=== PATIENT | female | born 1940 | race Caucasian/White ===

== ENCOUNTER → 2018-11-08 | Outpatient (CLI) | payer OTHER ==
[~2018-11-08] MED LIST: ALLERCLEAR10 MG PO; ASCO500 PO; CALCAVITDA PO; ERGO400 PO; LEVSOD50 PO; OMEP20ER PO; OXYC5 PO; PRIM50 PO; PROP10 PO; Prilosec Otc20 MG; [UNRECOGNIZED DRUG - REMARK] PO
[2018-11-08 16:13] LABS: BASOPHILS ABSOLUTE AUTO 0.06 K/mm3 (0.00-0.23); BASOPHILS PERCENT AUTO 1 % (0-2); EOSINOPHILS ABSOLUTE AUTO 0.48 K/mm3 (0.00-0.68); EOSINOPHILS PERCENT AUTO 6 % (0-6); Hematocrit 43.1 % (33.0-51.0); Hemoglobin 13.9 g/dL (11.5-16.0); IMMATURE GRAN ABSOLUTE AUTO 0.02 K/mm3 (0.00-0.10); IMMATURE GRAN PERCENT AUTO 0 % (0-1); LYMPHOCYTES ABSOLUTE AUTO 2.66 K/mm3 (0.84-5.20); LYMPHOCYTES PERCENT AUTO 33 % (21-46); MONOCYTES ABSOLUTE AUTO 0.58 K/mm3 (0.16-1.47); MONOCYTES PERCENT AUTO 7 % (4-13); Mean Corpuscular HGB 29.5 pg (26.0-34.0); Mean Corpuscular HGB Conc 32.3 g/dL (31.5-36.5); Mean Corpuscular Volume 92 fL (80-100); NEUTROPHILS PERCENT AUTO 53 % (41-73); Platelet Count 287 K/mm3 (150-400); RDW Coefficient Variation 12.6 % (11.7-14.2); RDW Standard Deviation 42.5 fL (35.1-46.3); Red Blood Cell Count 4.71 M/mm3 (3.80-5.20)
[2018-11-08 16:23] LABS: Albumin, Blood 3.6 g/dL (3.4-5.0); Albumin/Globulin Ratio 0.9 (0.8-1.8); Bilirubin, Total 0.4 mg/dL (0.1-1.0); Bun/Creatinine Ratio 13.2 (12.0-20.0); Calcium, Blood 9.3 mg/dL (8.5-10.1); Creatinine, Blood 0.91 mg/dL (0.40-1.00); Globulin, Blood 4.2 g/dL (2.2-4.0); Potassium, Blood 4.1 mmol/L (3.5-5.5); Total Protein, Blood 7.8 g/dL (6.4-8.2)
== END | disposition home or self-care (01) ==
LOC: LAB SHORT 16:08 → LAB EV 16:08
PROVIDERS: Internal Medicine
DX: R10.30 Lower abdominal pain, unspecified (principal)
CPT/HCPCS: 80053; 85025

== ENCOUNTER 2019-03-10 05:47 | Day surgery (SDC) | payer OTHER ==
[~2019-03-10] VITALS: Ht 157.5 cm; Wt 76.5 kg
[~2019-03-10 05:47] MED LIST changes: +CALCIUM PO; +Colace100 MG PO; -ERGO400 PO; +FAMO40 PO; +Gaviscon Extra355 ML PO; +MIRALAX17 G1 PO; +PRAHYD1AE TOP; +RHINOCORT ALL8.43 ML; +THERA1 EACH PO; +Vitamin D2000 UNIT PO
--- NOTE | 2019-03-10 07:12 | NUR ---
History, Chart, Medications and Allergies reviewed before start of procedure. Pre-Op teaching done. Pt verbalizes understanding. Patient States Post-Procedure ride home has been arranged with Femi. Lungs clear T/O to Auscultation. Patient states colon prep results clear. All of patient belonging in bag under bed, no jewerly dentures or glasses were worn to procedure.
--- NOTE | 2019-03-10 07:40 | NUR ---
03/10/19 0740 Belia Degroot History, Chart, Medications and Allergies reviewed before start of procedure. MONITOR INTACT WITH CONTINUOUS PULSE OXIMETRY AND INTERMITTENT BP. DR. PICHARDO PROVING MAC. PROCEDURE DONE ON OR 2.
--- NOTE | 2019-03-10 10:40 | NUR ---
Patient up to Ambulate independently. Gait steady. Discharge instructions reviewed with patient. Patient verbalizes understanding. Copy given to patient to take home. Patient States Post-Procedure ride home has been arranged. Discharged via wheelchair to private car for ride home. ALL BELONINGS RETURNED TO PATIENT.
== END 2019-03-10 22:40 | disposition home or self-care (01) ==
LOC: ORSCMMR 05:47 → ORD 07:30 → ORSCMMR 22:40
PROVIDERS: Surgery
PROC: 0DBK8ZX Excision of Ascending Colon, Via Natural or Artificial Opening Endoscopic, Diagnostic (ICD-10-PCS; principal; 2019-03-10 07:30)
PROC: 06BY0ZC Excision of Hemorrhoidal Plexus, Open Approach (ICD-10-PCS; principal; 2019-03-10 07:30)
PROC: 0DBM8ZX Excision of Descending Colon, Via Natural or Artificial Opening Endoscopic, Diagnostic (ICD-10-PCS; principal; 2019-03-10 07:30)
DX: K64.2 Third degree hemorrhoids (principal); K62.5 Hemorrhage of anus and rectum; K57.30 Diverticulosis of large intestine without perforation or abscess without bleeding; D12.2 Benign neoplasm of ascending colon; D12.4 Benign neoplasm of descending colon; K21.9 Gastro-esophageal reflux disease without esophagitis; E03.9 Hypothyroidism, unspecified; Z79.899 Other long term (current) drug therapy
CPT/HCPCS: 88304; 88305; J1100; J1885; J2250; J2405; J2704; J3010; J7120

== ENCOUNTER 2020-04-04 16:12 | Emergency (ER) | payer OTHER ==
[~2020-04-04] VITALS: Ht 162.6 cm; Wt 63.5 kg
[2020-04-04 17:52] LABS: Alanine Aminotransfer (ALT/SGP 32 U/L (12-78); Albumin, Blood 3.5 g/dL (3.4-5.0); Albumin/Globulin Ratio 1.2 (0.8-1.8); Alk Phos 78 U/L (50-136); Anion Gap 5 mmol/L (6-16); Aspartate Aminotrans (AST/SGOT 30 U/L (12-37); Bilirubin, Total 0.4 mg/dL (0.1-1.0); Blood Urea Nitrogen 11 mg/dL (8-24); Bun/Creatinine Ratio 16.9 (12.0-20.0); CO2, Blood 27 mmol/L (21-32); Chloride, Blood 108 mmol/L (98-108); Creatinine, Blood 0.65 mg/dL (0.40-1.00); Glomerular Filtration Rate >60 (60-); Glucose, Blood 98 mg/dL (70-99); Potassium, Blood 4.1 mmol/L (3.5-5.5); Sodium, Blood 140 mmol/L (136-145); Total Protein, Blood 6.5 g/dL (6.4-8.2); Troponin I <0.015 ng/mL (0.000-0.040)
[2020-04-04 18:24] LABS: BASOPHILS ABSOLUTE AUTO 0.04 K/mm3 (0.00-0.23); BASOPHILS PERCENT AUTO 1 % (0-2); EOSINOPHILS ABSOLUTE AUTO 0.26 K/mm3 (0.00-0.68); EOSINOPHILS PERCENT AUTO 4 % (0-6); Hematocrit 43.2 % (33.0-51.0); Hemoglobin 13.7 g/dL (11.5-16.0); IMMATURE GRAN ABSOLUTE AUTO 0.02 K/mm3 (0.00-0.10); IMMATURE GRAN PERCENT AUTO 0 % (0-1); LYMPHOCYTES ABSOLUTE AUTO 2.09 K/mm3 (0.84-5.20); LYMPHOCYTES PERCENT AUTO 32 % (21-46); MONOCYTES ABSOLUTE AUTO 0.51 K/mm3 (0.16-1.47); MONOCYTES PERCENT AUTO 8 % (4-13); Mean Corpuscular HGB Conc 31.7 g/dL (31.5-36.5); Mean Corpuscular Volume 91 fL (80-100); Mean Platelet Volume 10.5 fL (9.1-12.4); NEUTROPHILS ABSOLUTE AUTO 3.59 K/mm3 (1.96-9.15); NEUTROPHILS PERCENT AUTO 55 % (41-73); Platelet Count 221 K/mm3 (150-400); RDW Coefficient Variation 12.4 % (11.7-14.2); RDW Standard Deviation 41.9 fL (35.1-46.3); Red Blood Cell Count 4.73 M/mm3 (3.80-5.20); White Blood Cell Count 6.51 K/mm3 (4.00-11.30)
== END 2020-04-04 18:45 | disposition home or self-care (01) ==
LOC: ER 16:12
PROVIDERS: Emergency Medicine; Physician Assistant
DX: R07.9 Chest pain, unspecified (principal); Z79.899 Other long term (current) drug therapy; Z88.0 Allergy status to penicillin; Z88.5 Allergy status to narcotic agent; Z88.2 Allergy status to sulfonamides; Z79.52 Long term (current) use of systemic steroids; Z91.012 Allergy to eggs; Z91.018 Allergy to other foods; Z88.1 Allergy status to other antibiotic agents
CPT/HCPCS: 71046; 80053; 82550; 83690; 83880; 84484; 85025; 85379; 93005; 93010; 96374; 99285-25; J2060

== ENCOUNTER → 2020-08-05 | Outpatient (CLI) | payer OTHER | END | disposition home or self-care (01) | LOC: LAB 15:33 → LAB SHORT 15:33 | DX: R30.9 Painful micturition, unspecified (principal) | CPT/HCPCS: 87077; 87086; 87186 ==

== ENCOUNTER → 2020-11-12 | Outpatient (CLI) | payer OTHER | END | disposition home or self-care (01) | LOC: LAB SHORT 12:00 → LAB 12:00 | DX: R30.0 Dysuria (principal) | CPT/HCPCS: 87086 ==

== ENCOUNTER → 2021-11-15 | Outpatient (CLI) | payer OTHER ==
[2021-11-15 14:44] LABS: BASOPHILS ABSOLUTE AUTO 0.05 K/mm3 (0.00-0.23); BASOPHILS PERCENT AUTO 1 % (0-2); EOSINOPHILS ABSOLUTE AUTO 0.41 K/mm3 (0.00-0.68); EOSINOPHILS PERCENT AUTO 6 % (0-6); Hematocrit 43.5 % (33.0-51.0); Hemoglobin 14.2 g/dL (11.5-16.0); IMMATURE GRAN ABSOLUTE AUTO 0.02 K/mm3 (0.00-0.10); IMMATURE GRAN PERCENT AUTO 0 % (0-1); LYMPHOCYTES ABSOLUTE AUTO 1.97 K/mm3 (0.84-5.20); LYMPHOCYTES PERCENT AUTO 28 % (21-46); MONOCYTES PERCENT AUTO 8 % (4-13); Mean Corpuscular HGB 30.1 pg (26.0-34.0); Mean Corpuscular HGB Conc 32.6 g/dL (31.5-36.5); Mean Corpuscular Volume 92 fL (80-100); NEUTROPHILS ABSOLUTE AUTO 4.09 K/mm3 (1.96-9.15); NEUTROPHILS PERCENT AUTO 57 % (41-73); Platelet Count 303 K/mm3 (150-400); RDW Coefficient Variation 12.1 % (11.7-14.2); RDW Standard Deviation 41.7 fL (35.1-46.3); Red Blood Cell Count 4.72 M/mm3 (3.80-5.20); White Blood Cell Count 7.14 K/mm3 (4.00-11.30)
[2021-11-15 15:01] LABS: Albumin, Blood 3.6 g/dL (3.4-5.0); Bilirubin, Total 0.5 mg/dL (0.1-1.0); Bun/Creatinine Ratio 16.4 (12.0-20.0); Creatinine, Blood 0.73 mg/dL (0.40-1.00); Globulin, Blood 3.7 g/dL (2.2-4.0); Magnesium, Blood 2.2 mg/dL (1.6-2.4); Potassium, Blood 3.9 mmol/L (3.5-5.5); Total Protein, Blood 7.3 g/dL (6.4-8.2)
== END | disposition home or self-care (01) ==
LOC: LAB SHORT 14:05
PROVIDERS: Nurse Practitioner Family
DX: R53.83 Other fatigue (principal)
CPT/HCPCS: 80053; 83735; 85025

== ENCOUNTER → 2022-01-02 | Outpatient (CLI) | payer MEDICARE | LOC: LAB 13:08 → LAB SHORT 13:08 | DX: N39.0 Urinary tract infection, site not specified (principal) | CPT/HCPCS: 87077; 87086; 87186 ==

== ENCOUNTER 2022-02-12 17:46 | Emergency (ER) | payer MEDICARE ==
[~2022-02-12] VITALS: Ht 162.6 cm; Wt 72.6 kg
[2022-02-12 18:41] LABS: BASOPHILS ABSOLUTE AUTO 0.04 K/mm3 (0.00-0.23); BASOPHILS PERCENT AUTO 1 % (0-2); EOSINOPHILS ABSOLUTE AUTO 0.16 K/mm3 (0.00-0.68); EOSINOPHILS PERCENT AUTO 2 % (0-6); Hematocrit 43.8 % (33.0-51.0); Hemoglobin 14.2 g/dL (11.5-16.0); IMMATURE GRAN ABSOLUTE AUTO 0.01 K/mm3 (0.00-0.10); IMMATURE GRAN PERCENT AUTO 0 % (0-1); LYMPHOCYTES ABSOLUTE AUTO 1.84 K/mm3 (0.84-5.20); LYMPHOCYTES PERCENT AUTO 26 % (21-46); MONOCYTES ABSOLUTE AUTO 0.64 K/mm3 (0.16-1.47); MONOCYTES PERCENT AUTO 9 % (4-13); Mean Corpuscular HGB 29.6 pg (26.0-34.0); Mean Corpuscular HGB Conc 32.4 g/dL (31.5-36.5); Mean Corpuscular Volume 91 fL (80-100); Mean Platelet Volume 9.9 fL (9.1-12.4); NEUTROPHILS ABSOLUTE AUTO 4.52 K/mm3 (1.96-9.15); NEUTROPHILS PERCENT AUTO 63 % (41-73); Platelet Count 263 K/mm3 (150-400); RDW Coefficient Variation 12.2 % (11.7-14.2); RDW Standard Deviation 40.4 fL (35.1-46.3); Red Blood Cell Count 4.79 M/mm3 (3.80-5.20); White Blood Cell Count 7.21 K/mm3 (4.00-11.30)
[2022-02-12 19:25] LABS: Albumin, Blood 3.3 g/dL (3.4-5.0); Albumin/Globulin Ratio 0.8 (0.8-1.8); Bilirubin, Total 0.4 mg/dL (0.1-1.0); Bun/Creatinine Ratio 12.7 (12.0-20.0); Calcium, Blood 9.4 mg/dL (8.5-10.1); Creatinine, Blood 0.71 mg/dL (0.40-1.00); Potassium, Blood 3.6 mmol/L (3.5-5.5); Total Protein, Blood 7.3 g/dL (6.4-8.2)
== END 2022-02-12 19:42 | disposition left against medical advice (07) ==
LOC: ER 17:46
PROVIDERS: Student in an Organized Health Care Education/Training Program
DX: R07.9 Chest pain, unspecified (principal); M54.9 Dorsalgia, unspecified; Z53.21 Procedure and treatment not carried out due to patient leaving prior to being seen by health care provider
CPT/HCPCS: 36415; 71046; 80053; 83880; 84484; 85025

== ENCOUNTER 2022-02-22 20:47 | Inpatient (IN) | payer MEDICARE ==
[~2022-02-22] VITALS: Ht 162.6 cm; Wt 66.7 kg
[2022-02-22 21:11] LABS: BASOPHILS ABSOLUTE AUTO 0.06 K/mm3 (0.00-0.23); BASOPHILS PERCENT AUTO 1 % (0-2); EOSINOPHILS ABSOLUTE AUTO 0.12 K/mm3 (0.00-0.68); EOSINOPHILS PERCENT AUTO 1 % (0-6); Hematocrit 46.5 % (33.0-51.0); Hemoglobin 15.2 g/dL (11.5-16.0); IMMATURE GRAN ABSOLUTE AUTO 0.03 K/mm3 (0.00-0.10); IMMATURE GRAN PERCENT AUTO 0 % (0-1); LYMPHOCYTES ABSOLUTE AUTO 2.65 K/mm3 (0.84-5.20); LYMPHOCYTES PERCENT AUTO 23 % (21-46); MONOCYTES ABSOLUTE AUTO 1.09 K/mm3 (0.16-1.47); MONOCYTES PERCENT AUTO 10 % (4-13); Mean Corpuscular HGB 29.9 pg (26.0-34.0); Mean Corpuscular HGB Conc 32.7 g/dL (31.5-36.5); Mean Corpuscular Volume 91 fL (80-100); Mean Platelet Volume 10.5 fL (9.1-12.4); NEUTROPHILS ABSOLUTE AUTO 7.39 K/mm3 (1.96-9.15); NEUTROPHILS PERCENT AUTO 65 % (41-73); Platelet Count 277 K/mm3 (150-400); RDW Coefficient Variation 12.4 % (11.7-14.2); RDW Standard Deviation 41.7 fL (35.1-46.3); Red Blood Cell Count 5.09 M/mm3 (3.80-5.20); White Blood Cell Count 11.34 K/mm3 (4.00-11.30)
[2022-02-22 21:26] LABS: International Normalized Ratio 1.09; Prothrombin Time Results 11.4 Sec (9.7-11.5)
[2022-02-22 21:32] LABS: Alanine Aminotransfer (ALT/SGP 28 U/L (12-78); Albumin, Blood 3.4 g/dL (3.4-5.0); Albumin/Globulin Ratio 0.8 (0.8-1.8); Alk Phos 99 U/L (50-136); Anion Gap 7 mmol/L (6-16); Aspartate Aminotrans (AST/SGOT 20 U/L (12-37); Bilirubin, Total 0.7 mg/dL (0.1-1.0); Blood Urea Nitrogen 14 mg/dL (8-24); Bun/Creatinine Ratio 16.6 (12.0-20.0); CHOL/HDL RATIO 4.8; CO2, Blood 27 mmol/L (21-32); Calcium, Blood 8.8 mg/dL (8.5-10.1); Chloride, Blood 105 mmol/L (98-108); Cholesterol 194 mg/dL (50-200); Creatinine, Blood 0.84 mg/dL (0.40-1.00); Globulin, Blood 4.1 g/dL (2.2-4.0); Glomerular Filtration Rate 69 (60-); Glucose, Blood 137 mg/dL (70-99); HDL Cholesterol 40 mg/dL (>39); Low Density Lipoprotein Chol 122 mg/dL (0-110); Magnesium, Blood 2.3 mg/dL (1.6-2.4); Potassium, Blood 3.7 mmol/L (3.5-5.5); Sodium, Blood 139 mmol/L (136-145); Total Protein, Blood 7.5 g/dL (6.4-8.2); Triglycerides 162 mg/dL (30-160); Very Low Density Lipoprot Chol 32 mg/dL (6-32)
[2022-02-22 22:00] LABS: Calcium, Ionized (POC) 1.09 mmol/L (1.10-1.46); Chloride (POC) 102 mmol/L (98-108); Creatinine (POC) 0.8 mg/dL (0.6-1.0); Glucose (ISTAT POC) 119 mg/dL (70-99); Hemoglobin (POC) 15.6 g/dL (12.0-16.0); Potassium (POC) 3.8 mmol/L (3.5-5.5); Sodium (POC) 139 mmol/L (135-148); Total CO2 (POC) 27 mmol/L (21-32)
--- NOTE | 2022-02-22 22:47 | NUR ---
Pt arrived to ICU-13 from collaborative physician. Per ED report, pt was c/o chest pain and taken to the collaborative physician within an hour. Per laboratory inspector RN pt has a TR band to right radial site and no interventions were done. Pt is A&Ox4, DOS SANTOS, no c/o numbness or tingling. Sinus tach with HR in 110-120s. Pt denies any chest pain currently. States that she has some SOB - O2 sat 88-90%, pt placed on 3L NC.
--- NOTE | 2022-02-22 23:20 | NUR ---
Pt taken to CT for a stat chest CT to R/O PE. Arrived back to ICU-13. Assisted pt to bathroom and pt became extremely short of breath and tachycardic. Dr. Araiza came to bedside to assess patient. DNR order placed and band on left wrist. Heparin drip started.
[2022-02-22 23:23] LABS: Anti-Xa UFH, PHA Monitoring <0.10 IU/mL
--- NOTE | 2022-02-23 00:45 | NUR ---
Per report from laboratory veterinarian, TR band to right radial was inflated with 10ml. Dr. Barber informed chargemaster analyst that the pt was a high risk for bleed and to monitor closely. 2ml from TR band removed at this time. 8ml remaining.
--- NOTE | 2022-02-23 01:19 | NUR ---
2ml from TR band removed at this time. 6ml remaining. No bleeding noted.
--- NOTE | 2022-02-23 02:02 | NUR ---
2ml from TR band removed at this time. 4ml remaining. No bleeding noted.
--- NOTE | 2022-02-23 02:20 | NUR ---
2ml from TR band removed at this time. 2ml remaining. No bleeding noted.
--- NOTE | 2022-02-23 02:53 | NUR ---
Remainder of air removed from TR band. No bleeding noted. Pulses palpable. No c/o numbness/tingling.
--- NOTE | 2022-02-23 04:11 | NUR ---
TR band removed from right radial site. Tegaderm dressing placed and armboard intact. No bleeding or hematoma noted. Site is soft and no C/O numbness or tingling.
[2022-02-23 06:24] LABS: BASOPHILS ABSOLUTE AUTO 0.07 K/mm3 (0.00-0.23); BASOPHILS PERCENT AUTO 1 % (0-2); EOSINOPHILS PERCENT AUTO 1 % (0-6); Hematocrit 43.7 % (33.0-51.0); Hemoglobin 14.3 g/dL (11.5-16.0); IMMATURE GRAN ABSOLUTE AUTO 0.02 K/mm3 (0.00-0.10); IMMATURE GRAN PERCENT AUTO 0 % (0-1); LYMPHOCYTES ABSOLUTE AUTO 2.68 K/mm3 (0.84-5.20); LYMPHOCYTES PERCENT AUTO 27 % (21-46); MONOCYTES ABSOLUTE AUTO 0.85 K/mm3 (0.16-1.47); MONOCYTES PERCENT AUTO 9 % (4-13); Mean Corpuscular HGB Conc 32.7 g/dL (31.5-36.5); Mean Corpuscular Volume 92 fL (80-100); Mean Platelet Volume 10.6 fL (9.1-12.4); NEUTROPHILS ABSOLUTE AUTO 6.07 K/mm3 (1.96-9.15); NEUTROPHILS PERCENT AUTO 62 % (41-73); Platelet Count 235 K/mm3 (150-400); RDW Coefficient Variation 12.7 % (11.7-14.2); RDW Standard Deviation 42.4 fL (35.1-46.3); Red Blood Cell Count 4.76 M/mm3 (3.80-5.20); White Blood Cell Count 9.79 K/mm3 (4.00-11.30)
--- NOTE | 2022-02-23 06:26 | NUR ---
Shift summary: Neuro: A&OX4, calls out appropriately, follows commands. Cardiac: ST, BP WNL. TR band to right radial site removed around 4am, tegaderm dressing in place. No bleeding or hematoma noted. Pulses are palpable, no c/o numbness or tingling. Denies any chest pain or pressure. Resp: AMBRIZ. Pt currently on 2L NC with O2 sats 96%. Clear/diminished breath sounds throughout. CT chest shows severe PE's. GI/: Cardiac diet, No BM overnight. Voided in the toilet the first time but became severely SOB. Pt tolerated voiding in bedpan much better. Other: Heparin drip infusing at 12units/kg/hr and pharmacy to adjust dosage. Pending study to asses BLE for DVT's and an ECHO.
[2022-02-23 06:46] LABS: Bun/Creatinine Ratio 16.8 (12.0-20.0); Calcium, Blood 8.8 mg/dL (8.5-10.1); Creatinine, Blood 0.83 mg/dL (0.40-1.00); Potassium, Blood 3.5 mmol/L (3.5-5.5)
--- NOTE | 2022-02-23 07:39 | NUR ---
CARE OF PT ASSUMED AT 0700. HEPARIN TURNED OFF AT 0700, TO BE HELD X 1HR PER PHARMACY THEN TO RESUME AT 10UNITS/KG/HR. DR CONRAD CALLED FOR AN UPDATE, PT TO REMAIN NPO FOR NOW. BP STABLE, HR 100-110. PT DENIES C/O CHEST PAIN. PT CONF[place]ER[place]. PT HAD A DIFFICULT TIME USING BED ARMSTRONG, ONLY SMALL AMT OF URINE, WILL ASK TO CHECK W BLADER SCAN. PT DID NOT TOLERATE GETTING UP TO COMMODE PER NIGHT RN; SOB, LABORED BREATHING W TACHYCADIA.
--- NOTE | 2022-02-23 10:42 | NUR ---
UNABLE TO PASS CATHETER D/T POSSIBLE SPASM. PUREWICK PLACED FOR NOW.
--- NOTE | 2022-02-23 13:02 | NUR ---
DR CONRAD IN TO SPEAK W PT ABOUT POSSIBLY STARTING TPA. PT WILL THINK ABOUT IT AND WANTS TO CONSULT DAUGHTER. DR GUZMAN CONSULTED BY DR CONRAD; DR GUZMAN NOTIFIED. PT RESTING W/O COMPLAINTS AT THIS TIME
--- NOTE | 2022-02-23 17:11 | NUR ---
DR CONRAD IN AROUND 1600 TO SPEAK WITH PT AND PT'S DAUGHTER ABOUT TREATMENT OPTIONS. WILL CONT WITH JUST MEDICAL MANAGEMENT FOR NOW BUT THEY ARE CONSIDERING OTHER OPTIONS. OKAY FOR PT TO HAVE FOOD/FLUIDS. DIET ORDERED. HEPARIN GTT WAS INCREASED TO 11UNITS AT 1517 PER PHARMACY. BP REMAINS STABLE, NO OTHER CHANGES.
--- NOTE | 2022-02-23 18:17 | NUR ---
AFTER TURNING PT TO PLACE NEW DRUMMOND PAD, PT BECAME NAUSEATED. HEART RATE INCREASED TO 130. BP REMAINS STABLE DO O2 SATS. DR CONRAD CALLED, METOPROLOL 25MG AND ZOFRFRANCISCO JAVIER ORDERED.
[2022-02-24 07:39] LABS: BASOPHILS ABSOLUTE AUTO 0.06 K/mm3 (0.00-0.23); BASOPHILS PERCENT AUTO 1 % (0-2); EOSINOPHILS ABSOLUTE AUTO 0.12 K/mm3 (0.00-0.68); EOSINOPHILS PERCENT AUTO 1 % (0-6); Hematocrit 41.6 % (33.0-51.0); Hemoglobin 13.5 g/dL (11.5-16.0); IMMATURE GRAN ABSOLUTE AUTO 0.03 K/mm3 (0.00-0.10); IMMATURE GRAN PERCENT AUTO 0 % (0-1); LYMPHOCYTES ABSOLUTE AUTO 1.82 K/mm3 (0.84-5.20); LYMPHOCYTES PERCENT AUTO 17 % (21-46); MONOCYTES ABSOLUTE AUTO 0.93 K/mm3 (0.16-1.47); MONOCYTES PERCENT AUTO 9 % (4-13); Mean Corpuscular HGB 30.2 pg (26.0-34.0); Mean Corpuscular HGB Conc 32.5 g/dL (31.5-36.5); Mean Corpuscular Volume 93 fL (80-100); Mean Platelet Volume 11.7 fL (9.1-12.4); NEUTROPHILS ABSOLUTE AUTO 7.73 K/mm3 (1.96-9.15); NEUTROPHILS PERCENT AUTO 72 % (41-73); Platelet Count 213 K/mm3 (150-400); RDW Coefficient Variation 12.6 % (11.7-14.2); RDW Standard Deviation 43.2 fL (35.1-46.3); Red Blood Cell Count 4.47 M/mm3 (3.80-5.20); White Blood Cell Count 10.69 K/mm3 (4.00-11.30)
[2022-02-24 07:45] LABS: Bun/Creatinine Ratio 18.6 (12.0-20.0); Calcium, Blood 8.4 mg/dL (8.5-10.1); Creatinine, Blood 0.7 mg/dL (0.40-1.00)
--- NOTE | 2022-02-24 10:05 | NUR ---
ASSUMED CARE OF PT AT 0800 PT TRANSFERRED TO ICU 8 FROM ICU 13, BEDSIDE REPORT RECIEVED FROM EVON GUAMAN. PT A/OX4, PER REPORT CAN BE FORGETFUL AT TIMES. ST, BP WNL. 2 SAT 93% ON 2L NC, LUNGS CLEAR, DIMINISHED IN BILAT BASES. DENIES SOB AND CHEST PAIN. CARDIAC DIET, DECLINES BREAKFAST AT THIS TIME, WOULD LIKE TO SLEEP FOR A BIT. DENIES NAUSEA, NO VOMITING. PUREWICK IN PLACE, PT TOLERATING WELL. ASSESSED FOR CORRECT POSITION, NO SKIN ISSUES OBSERVED. PIV X2, RIGHT AC INFUSING HEPARIN AT 13UNITS, LEFT FOREARM SL. NO FAMILY CURRENTLY AT BEDSIDE. RN TO CONTINUE TO MONITOR.
--- NOTE | 2022-02-24 11:02 | NUR ---
Pt. is resting but responds when I enter the room and welcomes my visit. After cordial introductions the Pt. and this surveillance analyst realize that we know one another. Pt. is pleasant but unsettled by the physical limitations of her condition. Listen with empathy, and connect with the Pt. in a supportive understanding way. Pt. displayed evidence of being encouraged and supported. Pt. requested I let her methodist know that she was in the hospital. Prayed with Pt. Pt. verbalized gratitude for the spiritual care visit.
--- NOTE | 2022-02-24 14:07 | NUR ---
CARDIOLOGY TO BEDSIDE DISCUSSED POC WITH OPTICAL COATING TECHNICIAN DR. CONRAD, PA TO START PO ELOQUIS 5MG BID AND STOP HEPARIN DRIP 2 HOURS AFTER 1ST DOSE IF OK WITH CHUCKER. CONSULTED DR. GUZMAN AND ORDERS RECIEVED FOR ABOVE. UPON D/C, PT WILL NEED TO F/U WITH CARDIOLOGY IN 4 WEEKS AND PRIMARY CARE IN [address] CONRAD. RN TO CONTINUE TO MONITOR.
--- NOTE | 2022-02-24 15:24 | NUR ---
DR. ARRIOLA TO BEDSIDE OK TO STATUS CHANGE TO MEDICAL WITH TELE. UPDATED DR. ARRIOLA ON PLAN TO D/C HEPARIN DRIP AFTER ELIQUIS STARTED, HE IS AGREEABLE TO THE PLAN. POSSIBLE D/C HOME TOMORROW AFTER PT/OT EVAL IF APPROPRIATE. RN TO CONTINUE TO MONITOR.
--- NOTE | 2022-02-24 16:00 | NUR ---
DAUGHTER TO BEDSIDE UPDATED ON POC AND POTENTIAL D/C HOME TOMORROW IF DEEMED APPROPRIATE AFTER PT/OT EVAL. DAUGHTER CONCERNED ABOUT NO BM X7-8 DAYS. PT HAS ATTEMPTED TO HAVE BM TODAY WITH NO SUCCESS. CONTACTED DR. ARRIOLA FOR ORDERS, DULCOLAX SUPPOSITORY ORDERED AND GIVEN. HEPARIN DRIP D/C'D 2 HOURS POST ADMINISTRATION OF ELIQUIS ORDERED. RN TO CONTINUE TO MONITOR.
--- NOTE | 2022-02-24 18:28 | NUR ---
END OF SHIFT SUMMARY PT IS A/O X4. ST 100-115, SBP 110-120. ON RA FOR APPROX 1 HOUR AND DESATURATED TO 83% WITH ACTIVITY SO PLACED BACK ON 2L NC TO AMINTAIN O2 SAT > 96%. LUNGS CLEAR, DIMINSHED AT BASES. TOLERATED BREAKFAST AND LUNCH, NAUSEATED AT DINNER TIME, MEDICATED WITH ZOFRAN WITH GOOD EFFECT. DID NOT EAT DINNER. PUREWICK IN PLACE, CHANGED X2, ALSO HAD INCONTINENCE X2. ATTEMTPED BM SEVERAL TIMES ON THE BEDPAN WITH NO SUCCESS, DULCOLAX GIVEN OH. IV TO RIGHT AC, DRESSING CHANGED, FLUSHES AND WITHDRAWS BLOOD. IV TO LEFT WRIST, DRESSING C/D/I, FLUSHES AND WITHDRAWS BLOOD. HEPARIN DRIP D/C'D 2 HOURS AFTER 1ST DOSE OF ELIQUIS PER MD ORDER. DAUGHTER TO BEDSIDE, UPDATED ON POC. PLAN IS D/C HOME TOMORROW IF APPROPRIATE AFTER PT/OT. PT MAY NEED EVAL FOR HOME O2. RN TO CONTINUE TO MONITOR.
[2022-02-25 05:48] LABS: BASOPHILS ABSOLUTE AUTO 0.04 K/mm3 (0.00-0.23); BASOPHILS PERCENT AUTO 0 % (0-2); EOSINOPHILS ABSOLUTE AUTO 0.06 K/mm3 (0.00-0.68); EOSINOPHILS PERCENT AUTO 1 % (0-6); Hematocrit 39.6 % (33.0-51.0); Hemoglobin 13.1 g/dL (11.5-16.0); IMMATURE GRAN ABSOLUTE AUTO 0.03 K/mm3 (0.00-0.10); IMMATURE GRAN PERCENT AUTO 0 % (0-1); LYMPHOCYTES ABSOLUTE AUTO 1.19 K/mm3 (0.84-5.20); LYMPHOCYTES PERCENT AUTO 12 % (21-46); MONOCYTES ABSOLUTE AUTO 0.76 K/mm3 (0.16-1.47); MONOCYTES PERCENT AUTO 8 % (4-13); Mean Corpuscular HGB 29.8 pg (26.0-34.0); Mean Corpuscular HGB Conc 33.1 g/dL (31.5-36.5); Mean Corpuscular Volume 90 fL (80-100); Mean Platelet Volume 10.8 fL (9.1-12.4); NEUTROPHILS ABSOLUTE AUTO 8.03 K/mm3 (1.96-9.15); NEUTROPHILS PERCENT AUTO 79 % (41-73); Platelet Count 200 K/mm3 (150-400); RDW Coefficient Variation 12.4 % (11.7-14.2); RDW Standard Deviation 40.8 fL (35.1-46.3); White Blood Cell Count 10.11 K/mm3 (4.00-11.30)
--- NOTE | 2022-02-25 05:56 | NUR ---
END OF SHIFT REPORT NEURO/MUSCULOSKELETAL: PT ALERT AND ORIENTED TO SELF AND DATE. NO COMPLAINT OF NUMBNESS/TINGLING, HEADACHE OR VISION CHANGES. GROSS SENSATION INTACT. GENERALIZED WEAKNESS. BUE CANNOT OVERCOME RESISTANCE AND BLE CANNOT WORK AGAINST GRAVITY. STAND AND PIVOT TO BEDSIDE COMMODE. CARDIAC: ST. HR IN 100s. BP 130s/70s. C/O OF CHEST PAIN, PT SAID SHE HAS HAD IT SINCE SHE ARRIVED BUT IS MINIMAL IN COMPARISON TO WHEN SHE ARRIVED. DENIED PAIN MEDICATION. RESPIRATORY: 2L NC. SATTING >92%. BREATH SOUNDS CLEAR THROUGHOUT. DYSPNEIC WITH ACTIVITY. GI/: NO BOWEL MOVEMENT OVERNIGHT. HYPOACTIVE BOWEL SOUNDS. ADEQUATE AMOUNTS OF TUAN URINE OVERNIGHT. USED A PUREWICK AND BEDSIDE COMMODE. INTEGUMENTARY: INTACT. RIGHT RADIAL ACCESS. COVERED WITH TEGADERM. WNL
[2022-02-25 06:20] LABS: Calcium, Blood 8.6 mg/dL (8.5-10.1); Creatinine, Blood 0.71 mg/dL (0.40-1.00); Potassium, Blood 3.9 mmol/L (3.5-5.5)
--- NOTE | 2022-02-25 17:56 | NUR ---
END OF SHIFT SUMMARY PT IS A/O X4. SINUS TACH, BP WNL. LUNGS CLEAR WITH DIMISHED BASES BILATERALLY, HAD RT HOME O2 EVAL TODAY THAT SHOWED NO DESATURATION WITH MOBILITY HOWEVER PT DOES DESATURATE TO THE LOW 80'S WHILE ASLEEP. DISCUSSED WITH MD AND ORDERS RECIEVED FOR OXIMETRY EVAL DURING SLEEP TONIGHT. PT UPDATED, SHE IS AGREEABLE TO PLAN AND INFORMED HER DAUGHTER THAT SHE WOULD BE LIKELY D/C'D HOME TOMORROW. PLAN IS HOME WITH HOME HEALTH WHEN APPROPRIATE. ATE 20-30% OF ALL MEALS, ENCOURAGED FLUIDS. PT HAD SMALL FORMED BM AFTER MIRILAX, SENAKOT AND DULCOLAX SUPPOSITORY. 1 BRIEF EPISODE OF NAUSEA THAT RESOLVED AFTER SEVERAL MINUTES, PT DECLINED MEDICATION TO TREAT. PUREWICK REMOVED AFTER PT OOB W/PT. STANDBY ASSIST TO THE BATHROOM. RN TO CONTINUE TO MONITOR
--- NOTE | 2022-02-26 05:57 | NUR ---
END OF SHIFT REPORT NEURO/MUSCULOSKELETAL: PT ALERT AND ORIENTED TO SELF AND DATE. NO COMPLAINT OF NUMBNESS/TINGLING, HEADACHE OR VISION CHANGES. GROSS SENSATION INTACT. GENERALIZED WEAKNESS. BUE AND BLE CANNOT OVERCOME RESISTANCE. STAND AND PIVOT TO BEDSIDE COMMODE WITH NURSE ASSIST. CARDIAC: NSR-ST. HR IN 90s/100s. BP 120s/70s. PT DENIES CHEST PAIN. RESPIRATORY: SLEEP OXIMETRY STUDY. PUT PT ON 2L NC AROUND 0400. SATTING >95%. BREATH SOUNDS CLEAR THROUGHOUT. DYSPNEIC WITH ACTIVITY. GI/: NO BOWEL MOVEMENT OVERNIGHT. HYPOACTIVE BOWEL SOUNDS. C/O CONSTIPATION. LAST BOWEL MOVEMENT DOCUMENTED 02/19 LEAD TO NURSE GIVING TWO SOAP HERMINIO ENEMAS AND SUCCESSFUL DIGITAL DISIMPACTION. ADEQUATE AMOUNTS OF TUAN URINE OVERNIGHT. USED A PUREWICK AND BEDSIDE COMMODE. INTEGUMENTARY: INTACT. OLD RIGHT RADIAL ACCESS SITE COVERED WITH TEGADERM. WNL
[2022-02-26 06:07] LABS: BASOPHILS ABSOLUTE AUTO 0.04 K/mm3 (0.00-0.23); BASOPHILS PERCENT AUTO 0 % (0-2); EOSINOPHILS ABSOLUTE AUTO 0.12 K/mm3 (0.00-0.68); EOSINOPHILS PERCENT AUTO 1 % (0-6); Hematocrit 39.2 % (33.0-51.0); IMMATURE GRAN ABSOLUTE AUTO 0.03 K/mm3 (0.00-0.10); IMMATURE GRAN PERCENT AUTO 0 % (0-1); LYMPHOCYTES ABSOLUTE AUTO 1.15 K/mm3 (0.84-5.20); LYMPHOCYTES PERCENT AUTO 13 % (21-46); MONOCYTES ABSOLUTE AUTO 0.66 K/mm3 (0.16-1.47); MONOCYTES PERCENT AUTO 7 % (4-13); Mean Corpuscular HGB 29.9 pg (26.0-34.0); Mean Corpuscular HGB Conc 33.2 g/dL (31.5-36.5); Mean Corpuscular Volume 90 fL (80-100); Mean Platelet Volume 10.8 fL (9.1-12.4); NEUTROPHILS ABSOLUTE AUTO 6.97 K/mm3 (1.96-9.15); NEUTROPHILS PERCENT AUTO 78 % (41-73); Platelet Count 221 K/mm3 (150-400); RDW Coefficient Variation 12.4 % (11.7-14.2); RDW Standard Deviation 40.9 fL (35.1-46.3); Red Blood Cell Count 4.35 M/mm3 (3.80-5.20); White Blood Cell Count 8.97 K/mm3 (4.00-11.30)
[2022-02-26 06:22] LABS: Bun/Creatinine Ratio 18.5 (12.0-20.0); Calcium, Blood 8.7 mg/dL (8.5-10.1); Creatinine, Blood 0.65 mg/dL (0.40-1.00)
--- NOTE | 2022-02-26 09:00 | NUR ---
Care Assumed 0700 Pt A/O to location and following directions. Withdrawn. On 1 L via NC, SPO2 > 90%. LS clear and BT active. Purewick in place with dark yellow cloudy output. Right ridal site C/D/I. Small hematoma in place, will continute to monitor. NSR. VSS. Call light within reach.
--- NOTE | 2022-02-26 10:12 | NUR ---
Provider visit - Dr. King manager assurance called to arrange for home health and patient discharge. concession managerinsurance office manager is closed today. Provider and patient updated. Discharge to be completed tomorrow. Patient currently on 1 L via NC, SPO2 > 95%.
--- NOTE | 2022-02-26 12:32 | NUR ---
Physical therapy and nausea Pt moved from bed to chair. Has nausea after physical therapy. Denies pain. Nausea treated per emar. Pt had small toast for breakfast this morning. Will continue to offer food as tolerated.
--- NOTE | 2022-02-26 18:03 | NUR ---
PureWick removed Pt tolerated well. Per patients daughter, at home patient is able to ambulate to the restroom with minimial assistance. Will continue to monitor.
--- NOTE | 2022-02-26 18:07 | NUR ---
Shift Summary Pt remains A/O x 4. Daughter at bedside T/O shift and updated on current care. Waiting for home health to discharge patient tomorrow on oxygen. Pt remains on 1 L O2 T/O shift, SPO2 > 90%. When oxygen removed and pt falls asleep SPO2 decreases to 90%. Pt denies any pain. Right radial site unchanged. One episode of nausea during physical therapy, resolved with Zofran. Pt tolerated sitting in chair well. Did foot and leg stretch's without assistance. VSS. Will report to nightshift.
--- NOTE | 2022-02-27 06:31 | NUR ---
END OF SHIFT REPORT NEURO/MUSCULOSKELETAL: PT ALERT AND ORIENTED TO SELF AND DATE. NO COMPLAINT OF NUMBNESS/TINGLING, HEADACHE OR VISION CHANGES. GROSS SENSATION INTACT. GENERALIZED WEAKNESS. BUE AND BLE CANNOT OVERCOME RESISTANCE. STAND AND PIVOT TO BEDSIDE COMMODE WITH NURSE ASSIST. CARDIAC: NSR. HR IN 80s. BP 110s/60s. PT DENIES CHEST PAIN. RESPIRATORY: 2L NC WHILE SLEEPING. SATTING >95%. BREATH SOUNDS CLEAR THROUGHOUT. DYSPNEIC WITH ACTIVITY. GI/: NO BOWEL MOVEMENT OVERNIGHT. NORMOACTIVE BOWEL SOUNDS. NO C/O NAUSEA OR CONSTIPATION. PUTTING OUT MINIMAL AMOUNTS OF TUAN COLORED URINE OVERNIGHT. NO INTAKE OF FLUIDS. INTEGUMENTARY: INTACT. OLD RIGHT RADIAL ACCESS SITE COVERED WITH TEGADERM. WNL
--- NOTE | 2022-02-27 08:00 | NUR ---
PT A&OX4. GIVEN WARM WASH CLOTH AND SUPPLIES TO BRUSH TEETH. PT ABLE TO DO THESE THINGS INDEPENDENTLY WHEN PROVIDED WITH SUPPLIES. ECG SHOWS SR TO ST WITH RATE 90-110'S. BP STABLE. LUNGS SLIGHTLY DIMINISHED TO BASES. SATS>90% ON 1 LITERS NASAL CANULA. PT DENIES CP-MILD EXERTIONAL DYSPNEA, BUT MAINTAINS SATS>90%. PT 1 PERSON ASSIST OOB TO BSC, AND THEN TO CHAIR FOR BREAKFAST. ASSISTED WITH [facility] AND ADULT BRIEF PLACED. PLAN FOR DISCHARGE TODAY PROVIDED THAT PT ABLE TO HAVE HOME O2 PROVIDED. O2 EVALUATION DONE 02/25/22, BUT UNABLE TO CONTACT [facility] [place] DUE TO HOLIDAY.
--- NOTE | 2022-02-27 10:00 | NUR ---
PT WORKED WITH PT AND OT THIS AM. SHE IS STILL SITTING UP IN THE CHAIR. PT REPORTS NAUSEA-MED WITH ZOFRAN 4 MG IVP X 1-SEE EMAR.
--- NOTE | 2022-02-27 12:00 | NUR ---
PT AMBULATED IN THE ROOM ON RA AND SATS REMAINED >90%. DR. RONDON UPDATED. DISCHARGE ORDERED. PT TO GO HOME WITH HOME HEALTH. HOME HEALTH IS NOT ABLE TO SEE PT FOR 1 WEEK. PT AND HER DAUGHTER ARE BOTH AWARE AND AGREE THAT THE PLAN IS TO PROCEED WITH DISCHARGE. PT REQUESTED TO GET ON BSC AND THEN GET DRESSED. REQUEST GRANTED. PT ABLE TO DRESS HERSELF WITH MINIMAL ASSISTANCE. ONCE DRESSED, PT ASSISTED TO CHAIR. MEAL TRAY PROVIDED. CALL LIGHT WITHIN REACH.
[2022-02-27] MEDS ORDERED: ELIQUIS5 M2 PO (13:10)
[2022-02-27] MEDS ORDERED: ASPI81CH PO (13:11)
[2022-02-27] MEDS ORDERED: ATOR40TA PO (13:12)
--- NOTE | 2022-02-27 14:00 | NUR ---
DISCHARGE MEDS PHONED TO [facility]. ATTEMPTED TO CONTACT PT DAUGHTER PT WAS EXPECTING HER TO ARRIVE @ 1400-NO ANSWER.
--- NOTE | 2022-02-27 15:00 | NUR ---
REVIEWED DISCHARGE INSTRUCTIONS WITH PT DAUGHTER GERI. [facility] CONTACTED TO CONFIRM THAT RX WILL BE READY THIS AFTERNOON. IT IS CONFIRMED THAT THE THREE RX PHONED TO [facility] WILL BE READY THIS AFTERNOON. PT DISCHARGED TO HOME WITH HOME HEALTH REFERRAL, OUT VIA WHEELCHAIR WITH BELONGINGS AND DISCHARGE INSTRUCTIONS ON HAND.
== END 2022-02-27 15:15 | disposition home or self-care (01) | DRG 175 ==
LOC: ER 20:47 → ICUW 21:26 → ICUE 02-24 07:51 → ICUW 02-26 18:56
PROVIDERS: Internal Medicine; Internal Medicine Cardiovascular Disease; Student in an Organized Health Care Education/Training Program; ADMIT Family Medicine
PROC: 4A023N7 Measurement of Cardiac Sampling and Pressure, Left Heart, Percutaneous Approach (ICD-10-PCS; principal; 2022-02-22)
PROC: B211YZZ Fluoroscopy of Multiple Coronary Arteries using Other Contrast (ICD-10-PCS; 2022-02-22)
PROC: B240ZZ3 Ultrasonography of Single Coronary Artery, Intravascular (ICD-10-PCS; 2022-02-22)
DX: I26.99 Other pulmonary embolism without acute cor pulmonale (principal); I21.A1 Myocardial infarction type 2; J96.01 Acute respiratory failure with hypoxia; I82.433 Acute embolism and thrombosis of popliteal vein, bilateral; I82.4Z3 Acute embolism and thrombosis of unspecified deep veins of distal lower extremity, bilateral; Q24.5 Malformation of coronary vessels; E03.9 Hypothyroidism, unspecified; K21.9 Gastro-esophageal reflux disease without esophagitis; I25.10 Atherosclerotic heart disease of native coronary artery without angina pectoris; E78.5 Hyperlipidemia, unspecified; Z66 Do not resuscitate; R94.31 Abnormal electrocardiogram [ECG] [EKG]; R00.0 Tachycardia, unspecified; R01.1 Cardiac murmur, unspecified; F32.A Depression, unspecified; G25.0 Essential tremor; D51.9 Vitamin B12 deficiency anemia, unspecified; M81.0 Age-related osteoporosis without current pathological fracture; K64.9 Unspecified hemorrhoids; Z96.651 Presence of right artificial knee joint; Z85.038 Personal history of other malignant neoplasm of large intestine; Z88.0 Allergy status to penicillin; Z88.5 Allergy status to narcotic agent; Z88.2 Allergy status to sulfonamides; Z88.1 Allergy status to other antibiotic agents; Z88.8 Allergy status to other drugs, medicaments and biological substances; Z91.012 Allergy to eggs; Z91.018 Allergy to other foods; Z79.899 Other long term (current) drug therapy; Z90.49 Acquired absence of other specified parts of digestive tract; Z87.19 Personal history of other diseases of the digestive system; Z98.890 Other specified postprocedural states; Z90.710 Acquired absence of both cervix and uterus; Z90.722 Acquired absence of ovaries, bilateral
CPT/HCPCS: 36415; 71045; 71260; 76937; 80047; 80048; 80053; 80061; 83735; 84484; 85014; 85025; 85520; 85610; 85730; 86850; 86900; 86901; 93005; 93010; 93306; 93454; 93970; 94761; 96374; 96375; 97110; 97161; 97166; 97530; 99152; 99153; 99285-25; A9270; C1769; C1887; C1894; J1644; J2250; J2405; J3010; J7030; J7040; Q9967

== ENCOUNTER 2023-02-10 13:50 | Emergency (ER) | payer MEDICARE ==
[~2023-02-10] VITALS: Ht 162.6 cm; Wt 54.4 kg
[~2023-02-10 13:50] MED LIST changes: +ASPI81CH PO; +ATOR40TA PO; +ELIQUIS5 M2 PO
[2023-02-10] MEDS ORDERED: SYNTHROID50 MC1 PO (14:14)
[2023-02-10 14:32] LABS: BASOPHILS ABSOLUTE AUTO 0.03 K/mm3 (0.00-0.23); BASOPHILS PERCENT AUTO 0 % (0-2); EOSINOPHILS ABSOLUTE AUTO 0.01 K/mm3 (0.00-0.68); EOSINOPHILS PERCENT AUTO 0 % (0-6); Hematocrit 40.3 % (33.0-51.0); Hemoglobin 13.1 g/dL (11.5-16.0); IMMATURE GRAN ABSOLUTE AUTO 0.02 K/mm3 (0.00-0.10); IMMATURE GRAN PERCENT AUTO 0 % (0-1); LYMPHOCYTES PERCENT AUTO 19 % (21-46); MONOCYTES ABSOLUTE AUTO 0.39 K/mm3 (0.16-1.47); MONOCYTES PERCENT AUTO 5 % (4-13); Mean Corpuscular HGB 29.2 pg (26.0-34.0); Mean Corpuscular HGB Conc 32.5 g/dL (31.5-36.5); Mean Corpuscular Volume 90 fL (80-100); Mean Platelet Volume 10.3 fL (9.1-12.4); NEUTROPHILS ABSOLUTE AUTO 5.61 K/mm3 (1.96-9.15); NEUTROPHILS PERCENT AUTO 75 % (41-73); Platelet Count 239 K/mm3 (150-400); RDW Coefficient Variation 12.3 % (11.7-14.2); RDW Standard Deviation 40.6 fL (35.1-46.3); Red Blood Cell Count 4.48 M/mm3 (3.80-5.20); White Blood Cell Count 7.46 K/mm3 (4.00-11.30)
[2023-02-10 14:42] LABS: Albumin, Blood 3.3 g/dL (3.4-5.0); Bilirubin, Total 0.7 mg/dL (0.1-1.0); Bun/Creatinine Ratio 19.4 (12.0-20.0); Calcium, Blood 8.5 mg/dL (8.5-10.1); Creatinine, Blood 0.67 mg/dL (0.40-1.00); Globulin, Blood 3.2 g/dL (2.2-4.0); Potassium, Blood 3.8 mmol/L (3.5-5.5); Total Protein, Blood 6.5 g/dL (6.4-8.2)
[2023-02-10 14:42] LABS: Source, Urine Clean Catch
[2023-02-10 14:48] LABS: Appearance, Urine Hazy (Clear); Bilirubin, Urine Neg (Neg); Blood, Urine 2+ (Neg); Color, Urine Yellow (P-Yellow); Glucose Qualitative, Urine Neg (Neg); Ketones, Urine Neg (Neg); Leukocyte Esterase, Urine 3+ (Neg); Nitrite, Urine Pos (Neg); Protein, Urine 2+ (Neg); Specific Gravity, Urine 1.015 (1.003-1.022); Urobilinogen, Urine NORM (Normal)
[2023-02-10 14:58] LABS: Bacteria Many /hpf; Granular Casts 0-2 /lpf (0); Hyaline Casts 0-2 /lpf (0-2); Squamous Epithelial Cells Mod /hpf (Few); Transitional Epithelial Cells Few /hpf (0-Rare); White Blood Cells, Urine 25-50 /hpf (0-5)
[2023-02-10] MEDS ORDERED: CIPR500 PO (14:59)
[2023-02-10] MEDS ORDERED: PROM25 PO (15:02)
[2023-02-10 15:30] VITALS: BP 129/73
== END 2023-02-10 15:35 | disposition home or self-care (01) ==
LOC: ER 13:50
PROVIDERS: Emergency Medicine
DX: N39.0 Urinary tract infection, site not specified (principal); Z88.0 Allergy status to penicillin; Z88.5 Allergy status to narcotic agent; Z91.018 Allergy to other foods; Z91.012 Allergy to eggs; Z79.899 Other long term (current) drug therapy; Z79.82 Long term (current) use of aspirin
CPT/HCPCS: 80053; 81001; 85025; 87077; 87086; 87186; 93005; 93010; 96374; 99284-25; A9270; J2405

== ENCOUNTER 2023-02-21 17:01 | Emergency (ER) | payer MEDICARE ==
[~2023-02-21] VITALS: Ht 160 cm; Wt 61.2 kg
[~2023-02-21 17:01] MED LIST changes: +CIPR500 PO; +PROM25 PO; +SYNTHROID50 MC1 PO
[2023-02-21] MEDS ORDERED: Ondansetron HCl 2 MG / ML 2ML Vial IV ONE (18:20)
[2023-02-21] MEDS ORDERED: Lidocaine 2% Viscous Soln 15 ML UDC PO ONE ×2 (18:20→20:00)
[2023-02-21] MEDS ORDERED: Mag Hydrox/AL Hydrox/Simeth 30 ML UDC PO ONE ×2 (18:20→20:00)
[2023-02-21 18:47] LABS: BASOPHILS ABSOLUTE AUTO 0.06 K/mm3 (0.00-0.23); BASOPHILS PERCENT AUTO 1 % (0-2); EOSINOPHILS ABSOLUTE AUTO 0.16 K/mm3 (0.00-0.68); EOSINOPHILS PERCENT AUTO 3 % (0-6); Hematocrit 42.8 % (33.0-51.0); IMMATURE GRAN ABSOLUTE AUTO 0.01 K/mm3 (0.00-0.10); IMMATURE GRAN PERCENT AUTO 0 % (0-1); LYMPHOCYTES ABSOLUTE AUTO 1.89 K/mm3 (0.84-5.20); LYMPHOCYTES PERCENT AUTO 31 % (21-46); MONOCYTES ABSOLUTE AUTO 0.53 K/mm3 (0.16-1.47); MONOCYTES PERCENT AUTO 9 % (4-13); Mean Corpuscular HGB 29.5 pg (26.0-34.0); Mean Corpuscular HGB Conc 32.7 g/dL (31.5-36.5); Mean Corpuscular Volume 90 fL (80-100); Mean Platelet Volume 10.8 fL (9.1-12.4); NEUTROPHILS ABSOLUTE AUTO 3.53 K/mm3 (1.96-9.15); NEUTROPHILS PERCENT AUTO 57 % (41-73); Platelet Count 278 K/mm3 (150-400); RDW Coefficient Variation 12.6 % (11.7-14.2); RDW Standard Deviation 41.5 fL (35.1-46.3); Red Blood Cell Count 4.75 M/mm3 (3.80-5.20); White Blood Cell Count 6.18 K/mm3 (4.00-11.30)
[2023-02-21 19:02] LABS: Albumin, Blood 3.5 g/dL (3.4-5.0); Albumin/Globulin Ratio 1.1 (0.8-1.8); Bilirubin, Total 0.5 mg/dL (0.1-1.0); Bun/Creatinine Ratio 15.1 (12.0-20.0); Calcium, Blood 8.8 mg/dL (8.5-10.1); Creatinine, Blood 0.73 mg/dL (0.40-1.00); Globulin, Blood 3.3 g/dL (2.2-4.0); Potassium, Blood 3.8 mmol/L (3.5-5.5); Total Protein, Blood 6.8 g/dL (6.4-8.2)
[2023-02-21 19:14] VITALS: BP 124/74
[2023-02-21] MEDS ORDERED: Famotidine 20 MG Tab PO ONE (19:55)
[2023-02-21] MEDS ORDERED: Pepcid20 MG PO (20:00)
== END 2023-02-21 20:33 | disposition home or self-care (01) ==
LOC: ER 17:01
PROVIDERS: Emergency Medicine
DX: R07.89 Other chest pain (principal); Z88.0 Allergy status to penicillin; Z88.1 Allergy status to other antibiotic agents; Z88.2 Allergy status to sulfonamides; Z88.8 Allergy status to other drugs, medicaments and biological substances; Z88.5 Allergy status to narcotic agent; Z91.018 Allergy to other foods; Z91.012 Allergy to eggs; Z79.01 Long term (current) use of anticoagulants; Z79.890 Hormone replacement therapy; Z79.899 Other long term (current) drug therapy
CPT/HCPCS: 71260; 80053; 83690; 83880; 84484; 85025; 93005; 93010; 96374; 99285-25; A9270; J2405; Q9967

== ENCOUNTER → 2023-03-28 | Outpatient (CLI) | payer MEDICARE ==
[~2023-03-28] MED LIST changes: +Pepcid20 MG PO
== END ==
LOC: LAB 13:17 → LAB SHORT 13:17
DX: R35.0 Frequency of micturition (principal)
CPT/HCPCS: 87077; 87086; 87186

== ENCOUNTER → 2023-06-26 | Outpatient (CLI) | payer MEDICARE | LOC: LAB 17:21 → LAB SHORT 17:21 | DX: R35.0 Frequency of micturition (principal) | CPT/HCPCS: 87086 ==

== ENCOUNTER 2023-07-09 16:46 | Emergency (ER) | payer MEDICARE ==
[~2023-07-09] VITALS: Ht 160 cm; Wt 79.4 kg
[2023-07-09 17:22] LABS: BASOPHILS ABSOLUTE AUTO 0.06 K/mm3 (0.00-0.23); BASOPHILS PERCENT AUTO 1 % (0-2); EOSINOPHILS ABSOLUTE AUTO 0.17 K/mm3 (0.00-0.68); EOSINOPHILS PERCENT AUTO 3 % (0-6); Hematocrit 43.2 % (33.0-51.0); Hemoglobin 13.7 g/dL (11.5-16.0); IMMATURE GRAN ABSOLUTE AUTO 0.01 K/mm3 (0.00-0.10); IMMATURE GRAN PERCENT AUTO 0 % (0-1); LYMPHOCYTES ABSOLUTE AUTO 1.75 K/mm3 (0.84-5.20); LYMPHOCYTES PERCENT AUTO 26 % (21-46); MONOCYTES ABSOLUTE AUTO 0.52 K/mm3 (0.16-1.47); MONOCYTES PERCENT AUTO 8 % (4-13); Mean Corpuscular HGB 29.2 pg (26.0-34.0); Mean Corpuscular HGB Conc 31.7 g/dL (31.5-36.5); Mean Corpuscular Volume 92 fL (80-100); Mean Platelet Volume 10.3 fL (9.1-12.4); NEUTROPHILS ABSOLUTE AUTO 4.15 K/mm3 (1.96-9.15); NEUTROPHILS PERCENT AUTO 62 % (41-73); Platelet Count 236 K/mm3 (150-400); RDW Coefficient Variation 13.1 % (11.7-14.2); RDW Standard Deviation 44.1 fL (35.1-46.3); Red Blood Cell Count 4.69 M/mm3 (3.80-5.20); White Blood Cell Count 6.66 K/mm3 (4.00-11.30)
[2023-07-09] MEDS ORDERED: ZYPREXA2.5 MG PO (17:28)
[2023-07-09 18:00] LABS: Albumin, Blood 3.8 g/dL (3.4-5.0); Bilirubin, Total 0.4 mg/dL (0.1-1.0); Bun/Creatinine Ratio 23.3 (12.0-20.0); Calcium, Blood 9.1 mg/dL (8.5-10.1); Creatinine, Blood 0.82 mg/dL (0.40-1.00); Potassium, Blood 3.7 mmol/L (3.5-5.5); Total Protein, Blood 7.8 g/dL (6.4-8.2)
[2023-07-09 19:29] VITALS: BP 133/71
== END 2023-07-09 19:31 | disposition home or self-care (01) ==
LOC: ER 16:46
PROVIDERS: Nurse Practitioner
DX: S93.401A Sprain of unspecified ligament of right ankle, initial encounter (principal); R07.89 Other chest pain; W19.XXXA Unspecified fall, initial encounter; Z79.899 Other long term (current) drug therapy; Z88.1 Allergy status to other antibiotic agents; Z88.8 Allergy status to other drugs, medicaments and biological substances; Z91.018 Allergy to other foods; Z91.012 Allergy to eggs; Z88.5 Allergy status to narcotic agent; Z88.2 Allergy status to sulfonamides; Z88.6 Allergy status to analgesic agent; Z88.0 Allergy status to penicillin
CPT/HCPCS: 71046; 73610; 80053; 84484; 85025; 93005; 93010; 99285-25

== ENCOUNTER 2023-08-24 16:39 | Emergency (ER) | payer MEDICARE ==
[~2023-08-24] VITALS: Ht 162.6 cm; Wt 63.5 kg
[~2023-08-24 16:39] MED LIST changes: +ZYPREXA2.5 MG PO
[2023-08-24 17:50] LABS: BASOPHILS ABSOLUTE AUTO 0.06 K/mm3 (0.00-0.23); BASOPHILS PERCENT AUTO 1 % (0-2); EOSINOPHILS ABSOLUTE AUTO 0.12 K/mm3 (0.00-0.68); EOSINOPHILS PERCENT AUTO 2 % (0-6); Hematocrit 41.6 % (33.0-51.0); Hemoglobin 13.3 g/dL (11.5-16.0); IMMATURE GRAN ABSOLUTE AUTO 0.02 K/mm3 (0.00-0.10); IMMATURE GRAN PERCENT AUTO 0 % (0-1); LYMPHOCYTES ABSOLUTE AUTO 1.75 K/mm3 (0.84-5.20); LYMPHOCYTES PERCENT AUTO 24 % (21-46); MONOCYTES ABSOLUTE AUTO 0.54 K/mm3 (0.16-1.47); MONOCYTES PERCENT AUTO 7 % (4-13); Mean Corpuscular HGB 29.4 pg (26.0-34.0); Mean Corpuscular Volume 92 fL (80-100); Mean Platelet Volume 10.7 fL (9.1-12.4); NEUTROPHILS ABSOLUTE AUTO 4.77 K/mm3 (1.96-9.15); NEUTROPHILS PERCENT AUTO 66 % (41-73); Platelet Count 254 K/mm3 (150-400); RDW Coefficient Variation 13.2 % (11.7-14.2); RDW Standard Deviation 44.5 fL (35.1-46.3); Red Blood Cell Count 4.53 M/mm3 (3.80-5.20); White Blood Cell Count 7.26 K/mm3 (4.00-11.30)
[2023-08-24 18:07] LABS: Albumin/Globulin Ratio 1.2 (0.8-1.8); Bilirubin, Total 0.7 mg/dL (0.1-1.0); Bun/Creatinine Ratio 16.8 (12.0-20.0); Calcium, Blood 9.3 mg/dL (8.5-10.1); Creatinine, Blood 0.78 mg/dL (0.40-1.00); Globulin, Blood 3.4 g/dL (2.2-4.0); Potassium, Blood 3.9 mmol/L (3.5-5.5); Total Protein, Blood 7.4 g/dL (6.4-8.2)
[2023-08-24 19:15] VITALS: BP 129/87
== END 2023-08-24 20:36 | disposition home or self-care (01) ==
LOC: ER 16:39
PROVIDERS: Student in an Organized Health Care Education/Training Program
DX: R07.2 Precordial pain (principal); Z88.0 Allergy status to penicillin; Z88.5 Allergy status to narcotic agent; Z88.2 Allergy status to sulfonamides; Z88.1 Allergy status to other antibiotic agents; Z91.012 Allergy to eggs; Z88.8 Allergy status to other drugs, medicaments and biological substances; Z79.899 Other long term (current) drug therapy; I10 Essential (primary) hypertension; E03.9 Hypothyroidism, unspecified
CPT/HCPCS: 71046; 80053; 83690; 83880; 84484; 85025; 85379; 93005; 93010; 99285-25